=== PATIENT | female | born 1970 | race Hispanic/Latino ===

== ENCOUNTER 2023-07-22 08:41 | Outpatient (CLI) | payer OTHER | END 2023-07-22 08:42 | disposition home or self-care (01) | LOC: CSHULT 08:41 | PROVIDERS: ATTEND Family Medicine | DX: R10.30 Lower abdominal pain, unspecified (principal); R93.89 Abnormal findings on diagnostic imaging of other specified body structures; D25.9 Leiomyoma of uterus, unspecified | CPT/HCPCS: 76856 ==